=== PATIENT | female | born 1985 | race Caucasian/White ===

== ENCOUNTER 2020-06-04 18:56 | Emergency (ER) | payer MEDICAID, OTHER ==
[~2020-06-04] VITALS: Ht 157.5 cm; Wt 106.1 kg
[2020-06-04 19:00] VITALS: BP 125/50
[2020-06-04] MEDS ORDERED: KETOROLAC 60 MG/2 ML VIAL IM ONE (21:15)
[2020-06-04] MEDS ORDERED: ACET-8386 PO (22:02)
[2020-06-04] MEDS ORDERED: IBUP-2213 PO (22:02)
[2020-06-04 22:10] VITALS: BP 125/50
== END 2020-06-04 22:10 | disposition home or self-care (01) ==
LOC: MED 18:56
DX: R51.9 Headache, unspecified (principal)
CPT/HCPCS: 81002; 81025; 96372; 99283; J1885